=== PATIENT | female | born 1970 | race African-American/Black ===

== ENCOUNTER 2019-08-21 09:55 | Emergency (ER) | payer MEDICAID ==
[~2019-08-21] VITALS: Ht 165.1 cm; Wt 118.0 kg
[2019-08-21] MEDS ORDERED: ATOR20TA PO (10:01)
[2019-08-21] MEDS ORDERED: METO-385 PO (10:01)
[2019-08-21] MEDS ORDERED: METH500T6 PO (10:01)
[2019-08-21] MEDS ORDERED: ONDANSETRON HCL 4MG/2ML INJ IV STA (10:32)
[2019-08-21] MEDS ORDERED: MORPHINE SULFATE 4 MG/ML CPJ (NOT FOR IM USE) IV STA (10:32)
[2019-08-21] MEDS ORDERED: DIAZEPAM 5 MG TABLET PO ONE (10:45)
[2019-08-21 10:53] LABS: EOSINOPHILS % 3.9 % (0.0-5.0); HEMATOCRIT. 37.5 % (36.0-48.0); HEMOGLOBIN. 12.6 g/dL (12.0-16.0); LYMPHOCYTES % 31.2 % (20.0-50.0); MEAN CORPUSCULAR HEMOGLOBIN 27.8 pg (28.0-32.0); MEAN CORPUSCULAR VOLUME 82.4 fL (81.0-99.0); MEAN PLATELET VOLUME 8.6 fl (7.4-10.4); MONOCYTES % 4.4 % (2.0-8.0); NEUTROPHILS % 59.5 % (40.0-76.0); PLATELET 313 x1000/uL (130-400); RED BLOOD CELL COUNT 4.55 mill/uL (4.2-5.4)
[2019-08-21 11:00] LABS: CHLORIDE 103 mEq/L (98-107)
[2019-08-21] MEDS ORDERED: HYDRALAZINE 20MG/ML VIAL IV ONE (11:00)
[2019-08-21 11:55] VITALS: BP 175/109
[2019-08-21] MEDS ORDERED: POTASSIUM CHLORIDE 20MEQ TABLET SR PO ONE (12:15)
== END 2019-08-21 12:45 | disposition short-term general hospital (02) ==
LOC: ER 09:55
DX: R07.89 Other chest pain (principal); M54.12 Radiculopathy, cervical region; I10 Essential (primary) hypertension; E11.65 Type 2 diabetes mellitus with hyperglycemia; E78.00 Pure hypercholesterolemia, unspecified; M54.30 Sciatica, unspecified side; Z88.6 Allergy status to analgesic agent; Z88.8 Allergy status to other drugs, medicaments and biological substances
CPT/HCPCS: 36415; 71045; 80053; 82962; 83690; 83880; 84484; 85025; 93005; 96374; 96375; 99291; J0360; J2270; J2405